=== PATIENT | female | born 1970 | race Caucasian/White ===

== ENCOUNTER 2017-01-29 15:38 | Emergency (ER) | payer OTHER ==
[~2017-01-29] VITALS: Ht 167.6 cm; Wt 73.0 kg
[2017-01-29 15:42] VITALS: BP 160/77; PULSE 90; RESP 16; TEMP 98.1; O2SAT 100
[2017-01-29] MEDS ORDERED: VITA100021 SL (15:55)
[2017-01-29] MEDS ORDERED: DICL75TA PO (15:55)
[2017-01-29] MEDS ORDERED: FLUT1SPR5 EACH NARE (15:55)
[2017-01-29] MEDS ORDERED: AZEL0.055 EACH NARE (15:55)
[2017-01-29] MEDS ORDERED: LEVO88TA2 PO (15:55)
[2017-01-29] MEDS ORDERED: METH2.5T PO (15:55)
[2017-01-29] MEDS ORDERED: PRED10 PO (15:55)
[2017-01-29] MEDS ORDERED: AZAT1INJ (15:57)
[2017-01-29] MEDS ORDERED: AZAT50 PO (15:57)
[2017-01-29] MEDS ORDERED: CLIN300C5 PO (16:17)
--- NOTE | 2017-01-29 16:17 | PD ---
HPI Chief Complaint: ENT Complaint Time Seen by Provider: 16:03 Travel History International Travel<30 days: No Contact w/Intl Traveler<30days: No Traveled to known affect area: No History of Present Illness HPI 47-year-old female here with severe left ear pain. She reports she has ongoing otalgia for the last 6 months and is followed by ENT. Pain intensified yesterday. Denies fever or chills. She reports she has had some increased nasal congestion over the last week. Denies headache or neck pain. Symptom severity is moderate. No alleviating factors. PFSH Past Medical History Arthritis: Yes (ANKYLOSING) Thyroid Disease: Yes ?: Not Past Surgical History Hysterectomy: Yes Social History Alcohol Use: Yes (DAILY) Tobacco Use: No Substance Use: No Allergies-Medications (Allergen,Severity, Reaction): Coded Allergies: erythromycin base (Verified Allergy, Unknown, VERTIGO, 01/29/17) Reported Meds & Prescriptions Reported Meds & Active Scripts Active Ultram (Tramadol HCl) 50 Mg Tab 50 Mg PO Q6H PRN Clindamycin (Clindamycin HCl) 300 Mg Cap 300 Mg PO TID 10 Days Reported Azathioprine 50 Mg Tab 50 Mg PO BID Hazardous agent use appropriate precautions for handling and disposal. Azathioprine (Azathioprine Sodium) 100 Mg Inj Vitamin B-12 (Cyanocobalamin) 1,000 Mcg Subl 1,000 Mcg SL DAILY Prednisone 10 Mg Tab 10 Mg PO DAILY PRN Methotrexate 2.5 Mg Tab 10 Mg PO Q7D Flonase Nasal Stephen (Fluticasone Nasal Stephen) 50 Mcg/Act Stephen 100 Mcg EACH NARE BID Azelastine Nasal Stephen (Azelastine HCl) 0.15% Stephen 1 Stephen EACH NARE BID To each nostril. Diclofenac Sodium DR (Diclofenac Sodium) 75 Mg Tabdr 75 Mg PO DAILY Levothyroxine (Levothyroxine Sodium) 88 Mcg Tab 88 Mcg PO DAILY Review of Systems Except as stated in HPI: all other systems reviewed are Neg General / Constitutional: No: Fever Eyes: No: Visual changes HENT: No: Headaches Physical Exam Narrative GENERAL: Alert female. Nontoxic appearing. No distress. SKIN: Warm and dry. HEAD: Normocephalic. Atraumatic. EYES: No injection or drainage. EAR: Left TM: Cloudy-appearing TM with loss of landmarks and mild erythema. No perforation. No canal swelling or drainage. No mastoid tenderness NECK: Supple, trachea midline. No lymphadenopathy. No meningismus CARDIOVASCULAR: Regular rate and rhythm without murmurs, gallops, or rubs. RESPIRATORY: Breath sounds equal bilaterally. No accessory muscle use. GASTROINTESTINAL: Abdomen soft, non-tender, nondistended. Data Data Last Documented VS Vital Signs Date Time Temp Pulse Resp B/P (MAP) Pulse Ox O2 Delivery O2 Flow Rate FiO2 01/29/17 15:42 98.1 90 16 160/77 (104) 100 Orders Orders Ketorolac Inj (Toradol Inj) (01/29/17 16:30) [facility] Medical Decision Making Medical Screen Exam Complete: Yes Emergency Medical Condition: Yes Differential Diagnosis Otitis media, otitis externa, mastoiditis Narrative Course 47-year-old female here with severe left ear pain. She reports she has ongoing otalgia for the last 6 months and is followed by ENT. Pain intensified yesterday. She denies fever or chills. On exam she has a cloudy appearing left TM with moderate erythema, loss of landmarks. No perforation. No canal swelling. No mastoid tenderness. She will be treated for acute otitis media. Patient reports she was recently on Augmentin with no symptom relief. She is allergic to azithromycin. Patient will be treated with clindamycin Diagnosis Primary Impression: Otitis media Qualified Codes: H66.90 - Otitis media, unspecified, unspecified ear Referrals: Ear / Nose / Throat Specialist Additional Instructions: Follow-up with ENT tomorrow. Take the medication as prescribed. Return if he developed new or worsening symptoms. Scripts Tramadol (Ultram) 50 Mg Tab 50 MG PO Q6H Y for PAIN, #10 TAB 0 Refills Prov: Jorge Baker MD 01/29/17 Clindamycin (Clindamycin) 300 Mg Cap 300 MG PO TID for Infection for 10 Days, CAP 0 Refills Prov: Eli Amos 01/29/17 Disposition: 01 DISCHARGE HOME Condition: Stable Eli Amos Jan 29, 2017 16:17
[2017-01-29] MEDS ORDERED: TRAM50 PO (16:18)
[2017-01-29] MEDS ORDERED: KETOROLAC TROMETHAMINE 60 MG/2 ML (IM) VIAL IM ONE (16:30)
== END 2017-01-29 16:33 | disposition home or self-care (01) ==
LOC: PHED 15:38 → PHEFT 16:33
DX: H66.92 Otitis media, unspecified, left ear (principal)
CPT/HCPCS: 96372; 99284; J1885